=== PATIENT | female | born 1980 | race Two or more races ===

== ENCOUNTER 2020-12-18 13:28 | Emergency (ER) | payer OTHER ==
[~2020-12-18] VITALS: Ht 167.6 cm; Wt 113.4 kg
[2020-12-18] MEDS ORDERED: IBU800 MG PO (19:29)
[2020-12-18] MEDS ORDERED: NABUMETONE750 MG PO (19:29)
== END 2020-12-18 19:40 | disposition home or self-care (01) ==
LOC: ER 13:28
DX: S90.01XA Contusion of right ankle, initial encounter (principal); S90.32XA Contusion of left foot, initial encounter; S90.31XA Contusion of right foot, initial encounter; W18.39XA Other fall on same level, initial encounter; Y93.89 Activity, other specified; Y92.89 Other specified places as the place of occurrence of the external cause; Y99.8 Other external cause status

== ENCOUNTER → 2021-01-06 | Emergency (ER) | payer OTHER ==
[~2021-01-06] VITALS: Ht 167.6 cm; Wt 113.4 kg
[~2021-01-06] MED LIST: IBU800 MG PO; NABUMETONE750 MG PO; TESSALON PERLE100 M1; [UNRECOGNIZED DRUG - REMARK]
== END | disposition home or self-care (01) ==
LOC: ER 10:06
DX: G89.11 Acute pain due to trauma (principal); M79.671 Pain in right foot